=== PATIENT | female | born 1985 | race Caucasian/White ===

== ENCOUNTER 2020-11-05 17:35 | Emergency (ER) | payer OTHER ==
[~2020-11-05] VITALS: Ht 167.6 cm; Wt 72.6 kg
== END 2020-11-05 20:16 | disposition home or self-care (01) ==
LOC: ER 17:35
DX: M54.5 Low back pain (principal); W19.XXXA Unspecified fall, initial encounter; Y92.59 Other trade areas as the place of occurrence of the external cause; Y99.9 Unspecified external cause status